=== PATIENT | male | born 1955 | race Caucasian/White ===

== ENCOUNTER 2018-11-13 05:37 | Day surgery (SDC) ==
[2018-10-23 09:36] LABS: HEMATOCRIT 45.7 % (42.0-52.0); HEMOGLOBIN 14.8 g/dL (14.0-18.0); INR 1.06; MCH 23.6 PG (27-31); MCHC 32.4 g/dL (33-37); MCV 72.9 FL (81-99); MPV 10.6 FL (7.4-10.4); PROTIME 14.6 Seconds (11.0-16.0); RBC 6.27 XMIL (4.7-6.1); RDW 17.3 % (11.5-14.5); WBC 5.81 X1000 (4.8-10.8)
[2018-10-23 09:42] LABS: AGAP 11; BUN 18 mg/dL (8-22); CALCIUM 9.1 mg/dL (8.8-10.2); CHLORIDE 106 mmol/L (98-107); COSMO 284; ESTIMATED GFR > 60; GLUCOSE 112 mg/dL (70-104); POTASSIUM 4.2 mmol/L (3.5-5.1); SODIUM 141 mmol/L (136-145); TCO2 24 mmol/L (25-35)
--- NOTE | 2018-10-23 11:17 | EKG Report ---
Test Performed on : 10/23/2018 08:30:15 AM Test Reason : PAT Blood Pressure : / mmHG Vent. Rate : 081 BPM Atrial Rate : 081 BPM P-R Int : 140 ms QRS Dur : 102 ms QT Int : 388 ms P-R-T Axes : 019 016 024 degrees QTc Int : 450 ms Normal sinus rhythm. with sinus arrhythmia. Nonspecific intraventricular conduction delay Borderline ECG No previous ECGs available Confirmed by Ernesto Arevalo MD ([id number]) on 10/23/2018 6:42:24 PM
[2018-11-13] MEDS ORDERED: KEFZOL 1 GM/D5W 2 GM/100 ML IVPB ONE (06:04)
[2018-11-13] MEDS ORDERED: LR 1,000 ML ONE ×2 (06:04→06:26)
[2018-11-13] MEDS ORDERED: FENTANYL ONE (06:15)
[2018-11-13] MEDS ORDERED: DIPRIVAN 1% ONE (06:15)
[2018-11-13] MEDS ORDERED: QUELICIN (DOSE) ONE (06:17)
[2018-11-13] MEDS ORDERED: SODIUM CHLORIDE 0.9% 10 ML ONE (06:17)
[2018-11-13] MEDS ORDERED: XYLOCAINE-MPF 2% ONE (06:17)
[2018-11-13] MEDS ORDERED: NORCURON ONE ×2 (06:17→08:10)
[2018-11-13] MEDS ORDERED: ROBINUL ONE ×2 (06:17→08:48)
[2018-11-13] MEDS ORDERED: SENSORCAINE-MPF 0.5%/EPI 1:200,000 ONE (06:26)
[2018-11-13] MEDS ORDERED: B & O 16A SUPP ONE (06:26)
--- NOTE | 2018-11-13 06:57 | HISTORY AND PHYSICAL ---
HISTORY OF PRESENT ILLNESS: A 63-year-old male with clinical stage T2a, [place] 6 prostate adenocarcinoma. He presented with an abnormal prostate exam and rising PSA. He has occasional weak stream and hesitancy. He underwent a prostate biopsy in May of 2018 with pathology revealing [place] 6 prostate adenocarcinoma, 3 out of 12 cores in the right base and left apex up to 90% cores involved. He also had a thymus mass and elected to proceed with active surveillance after the thymus mass was removed. 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 His PSA increased up to 4.74 and he presented to discuss treatment. He elected to proceed with a robotic prostatectomy with laparoscopic urethral suspension. PAST MEDICAL HISTORY: Thymoma, hypertension, hyperlipidemia, history of kidney stones, neuropathy, diabetes mellitus, prostate cancer. PAST SURGICAL HISTORY: Open pyelolithotomy for kidney stone, herniorrhaphy, knee arthroscopy. HOME MEDICATIONS: Aspirin. ALLERGIES: No known drug allergies. FAMILY HISTORY: Positive for hypertension and diabetes. SOCIAL HISTORY: Denies tobacco, alcohol, or illicit drug use. PHYSICAL EXAMINATION: GENERAL: No acute distress. HEENT: Normocephalic, atraumatic. CARDIOVASCULAR: Regular rate and rhythm. PULMONARY: Bilateral breath sounds. ABDOMEN: Nontender, nondistended. : Normal external male genitalia. ASSESSMENT: A 63-year-old male with abnormal prostate examination and [place] 6 prostate adenocarcinoma who feels strongly about surgical intervention. We discussed the risks of robotic- assisted laparoscopic prostatectomy with laparoscopic urethral suspension including but not limited to bleeding, infection, injury to adjacent structures, inability to remove all of the cancer, long-term risk of urinary incontinence, as well as long-term risk of erectile dysfunction, and the need for additional intervention in the future. He voiced understanding and wants to proceed. PLAN: Robotic-assisted laparoscopic prostatectomy with urethral suspension. cc: Tiburcio Lopez MD
[2018-11-13] MEDS ORDERED: DECADRON ONE (07:29)
[2018-11-13 07:54] LABS: URINE SOURCE CATH
[2018-11-13 08:00] LABS: BILIRUBIN URINE NEGATIVE (NEGATIVE); BLOOD URINE MODERATE (NEGATIVE); COLOR YELLOW; GLUCOSE URINE NEGATIVE (NEGATIVE); KETONE URINE NEGATIVE (NEGATIVE); LEUKOCYTES URINE NEGATIVE (NEGATIVE); NITRITE URINE NEGATIVE (NEGATIVE); PH URINE 5.5; PROTEIN URINE NEGATIVE (NEGATIVE); TURBIDITY URINE CLEAR (CLEAR); UROBILINOGEN URINE NORMAL (NORMAL)
[2018-11-13 08:02] LABS: UR EPITHELIAL CELLS <10 /HPF (<10); URINE BACTERIA NEGATIVE /HPF; URINE RBC <10 /HPF (<10); URINE WBC <10 /HPF (<10)
[2018-11-13] MEDS ORDERED: NEOSTIGMINE ONE (08:48)
[2018-11-13] MEDS ORDERED: ZOFRAN ONE (08:59)
[2018-11-13] MEDS ORDERED: NS 1,000 ML ONE (10:21)
[2018-11-13] MEDS ORDERED: MORPHINE IV PRN (10:37)
[2018-11-13] MEDS ORDERED: PHENERGAN PO PRN (10:45)
[2018-11-13] MEDS ORDERED: BENADRYL IV PRN (10:45)
[2018-11-13] MEDS ORDERED: B & O 15A SUPP PR PRN (10:45)
[2018-11-13] MEDS ORDERED: LABETALOL IV PRN (10:45)
[2018-11-13] MEDS ORDERED: PHENERGAN IV PRN (10:45)
[2018-11-13] MEDS ORDERED: DILAUDID IV PRN (10:45)
[2018-11-13] MEDS ORDERED: OXY IR PO PRN ×2 (10:45)
[2018-11-13] MEDS ORDERED: BENADRYL LIQUID PO PRN (10:45)
[2018-11-13] MEDS ORDERED: DITROPAN PO PRN (10:45)
[2018-11-13] MEDS ORDERED: ZOFRAN IV PRN (10:45)
[2018-11-13] MEDS ORDERED: SODIUM CHLORIDE 0.9% INJ PRN (10:45)
[2018-11-13] MEDS ORDERED: TYLENOL PO PRN (10:45)
[2018-11-13] MEDS ORDERED: PHENERGAN PR PRN (10:45)
[2018-11-13] MEDS: DILAUDID ONE ×2 (10:53→10:56)
[2018-11-13] MEDS: NS 1,000 ML IV SCH ×2 (11:07→12:30)
[2018-11-13] MEDS: TORADOL IV SCH ×3 (12:29→23:50)
[2018-11-13] MEDS ORDERED: NORCO-7.5 PO PRN (12:30)
[2018-11-13] MEDS ORDERED: NORCO-5 PO PRN (12:30)
[2018-11-13] MEDS ORDERED: NORCO-10 PO PRN (12:30)
[2018-11-13] MEDS: BSS OPHTH SOLN LEFT EYE PRN ×3 (13:40→23:49)
[2018-11-13] MEDS ORDERED: OFIRMEV 1000 MG/ISOTONIC SOLN 1,000 MG/100 ML BOTTLE IV PRN (15:00)
[2018-11-13] MEDS: KEFZOL 2 GM/D5W 2 GM/50 ML IVPB IV SCH ×2 (15:57→23:05)
[2018-11-13] MEDS: PEPCID PO SCH (23:05)
[2018-11-13] MEDS: COLACE PO SCH (23:05)
[2018-11-13] MEDS: PERIDEX MT SCH (23:06)
[2018-11-14] MEDS: KEFZOL 2 GM/D5W 2 GM/50 ML IVPB IV SCH (06:42)
[2018-11-14 07:23] VITALS: BP 134/60
[2018-11-14 07:59] LABS: HEMATOCRIT 37.7 % (42.0-52.0); HEMOGLOBIN 11.6 g/dL (14.0-18.0); MCH 23.9 PG (27-31); MCHC 30.8 g/dL (33-37); MCV 77.6 FL (81-99); MPV 11.2 FL (7.4-10.4); RBC 4.86 XMIL (4.7-6.1); RDW 18.3 % (11.5-14.5); WBC 11.02 X1000 (4.8-10.8)
[2018-11-14 08:12] LABS: AGAP 10; BUN 15 mg/dL (8-22); CALCIUM 8.5 mg/dL (8.8-10.2); CHLORIDE 103 mmol/L (98-107); COSMO 280; CREATININE 1.2 mg/dL (0.7-1.2); ESTIMATED GFR > 60; GLUCOSE 135 mg/dL (70-104); POTASSIUM 4.1 mmol/L (3.5-5.1); SODIUM 139 mmol/L (136-145); TCO2 26 mmol/L (25-35)
[2018-11-14] MEDS: COLACE PO SCH (10:21)
[2018-11-14] MEDS: TORADOL IV SCH (10:21)
[2018-11-14] MEDS: PERIDEX MT SCH (10:21)
[2018-11-14] MEDS: PEPCID PO SCH (10:21)
--- NOTE | 2018-11-14 19:33 | PROGRESS NOTE ---
DATE: 11/14/2018 SUBJECTIVE: Mr. Krishnan reports he had a decent night. His pain is adequately controlled. He denies nausea. OBJECTIVE: Vital Signs: Temperature 98.2 degrees, pulse 93, blood pressure 134/60. His urine output was reported in amount of 3150 mL. General: No acute distress. Abdomen: Appropriately tender and nondistended. : Ace catheter in place, draining straw-colored urine. Incision clean, dry, and intact. PERTINENT LABS: Hematocrit is 38. Creatinine is 1.2. ASSESSMENT: 63-year-old male, postop day 1 status post robotic assisted laparoscopic prostatectomy with laparoscopic urethral suspension, who is doing well. He was educated on postoperative care and discharged home with a large bag and leg bag. PLAN: 1. Discharge home with Ace catheter. 2. He will go home with prescriptions for [place] 7.5 p.r.n. (#10), and Keflex 250 b.i.d. (#6). It was started on 11/17/2018. 3. Ditropan 5 mg t.i.d. p.r.n. (#15) For spasms. 4. He will come for Ace catheter removal on 11/18/2018. cc: Tiburcio Lopez MD
--- NOTE | 2018-11-14 22:08 | OPERATIVE NOTE ---
PROCEDURE DATE: 11/13/2018 SURGEON: Tiburcio Lopez MD. PREOPERATIVE DIAGNOSIS: Elevated prostate-specific antigen, prostate cancer. POSTOPERATIVE DIAGNOSIS: Elevated prostate-specific antigen, prostate cancer. PROCEDURE: Robotic-assisted laparoscopic prostatectomy with nerve sparing, laparoscopic urethral suspension. INDICATIONS: A 63-year-old male who presented with a rising PSA. He underwent prostate biopsy which revealed [place] 6 prostate adenocarcinoma. He originally elected to proceed with active surveillance, especially given the diagnosis of a thymus mass. He underwent that surgery in [place] and as part of followup, his PSA hilda. He wants to proceed with definitive intervention with robotic prostatectomy. FINDINGS: Watertight vesicourethral anastomosis at 240 mL. Bilateral nerve sparing was performed. DESCRIPTION OF PROCEDURE: After obtaining informed consent, patient was brought to the operating room. Perioperative antibiotics and general endotracheal anesthesia were administered. He was placed in lithotomy position, prepped and draped in a sterile fashion. An 18-[place] Ace catheter was introduced and placed to gravity drainage. We began by making a small stab incision in his umbilicus, and introducing a Veress needle connected to saline-filled syringe. We confirmed positive drop test, followed by aspiration of fluid in the syringe, without evidence of GI contents or blood. We insufflated his peritoneal cavity to 15 mmHg. Following that, we demarcated the trocar sites in the standard prostatectomy fashion. 10 mL of 0.25% Marcaine with epinephrine were used for local anesthesia. Bovie electrocautery was used to incise skin. A 12 mm camera trocar was introduced followed by insertion of the camera itself. His peritoneal cavity was examined and the rest of the trocars were placed under direct vision. We placed him in steep Trendelenburg position. The robot was docked. We began by mobilizing his sigmoid colon as it was adhered to the pelvic sidewall. Subsequent to that, we incised the peritoneum approximately 3 cm above his rectum, and were able to identify, dissect, and transect the right vas deferens. This was followed by identification and dissection of the right seminal vesicle. The same thing was done with the left vas deferens and left seminal vesicle. We then dissected anterior to vas deferens to the level of the prostate, and subsequently posterior to seminal vesicles by incising Denonvilliers' fascia and developing a perirectal plane. Attention was then drawn to dropping the bladder. We incised lateral to each medial umbilical ligament. His right medial umbilical ligament was patent with respect to blood flow, and I had to use bipolar cautery several times in order to control the bleeding. We eventually were able to gain access to the space of Retzius, and the bladder was dropped. The fat was reflected off the endopelvic fascia. The endopelvic fascia was then incised along the contour of the prostate, with dissection taking place toward its apex. The puboprostatic ligaments were divided sharply. The superficial dorsal vein was controlled with bipolar electrocautery. Deep dorsal venous complex was controlled with a 0 V-Loc suture followed by attempt to perform periosteal elevation. He appeared to have a very thin periosteum and hence, I abandoned the periosteal elevation and just tied the suture in a [id number] fashion. Subsequent to that, we identified the bladder neck by gentle tugging on the Ace. Monopolar cautery was used to incise the bladder neck until Ace catheter came into the view. At that time, we attempted to bring the Ace catheter into the operative field and placed on anterior traction with the fourth arm, but it became apparent that Ace catheter did not move as was indicated to me earlier. Hence, we concluded that we would likely put the stitch through the deep dorsal vein and the Ace. At that time, I turned attention back to the deep dorsal venous complex and cut the 0 V-Loc suture, which allowed us to achieve catheter mobility. At that time, there was quite a bit of bleeding and I ended up having to control it with two 0 V-Loc sutures. Eventually, we achieved good hemostasis and the catheter was brought in with the use of the fourth arm anteriorly. We then dissected circumferentially the bladder neck and by further elevating the prostate anteriorly, I was able to develop the plane between the prostate and the bladder. This was done until the vas deferens and seminal vesicles came into the view. Those were brought into the field and placed in anterior traction. Attention was then turned to reflect the neurovascular bundles on both sides. We used Hem-o-Roopa clips and judicious use of cautery. I attempted to perform intrafascial dissection in order to preserve the neurovascular bundle to its most degree. Once the bundles were reflected bilaterally, we developed the plane posteriorly toward the apex of the prostate. The apex was then transected and urethra was identified. I performed maximal urethral sparing technique, giving us approximately a 2 cm stump of the urethra. It was sharply transected. The prostate was delivered and placed into the EndoCatch bag. We then irrigated the operative field and there was no evidence of significant bleeding except for a tributary to the deep dorsal vein, which was controlled with the remnant 0 V- Loc suture. Attention was then turned to García stitch. In a standard fashion, a 3-0 V-Loc suture was used to reapproximate perivesical and periurethral fascia in a clockwise and counterclockwise fashion. We spared those sutures for future laparoscopic urethral suspension. We then performed a formal vesicourethral anastomosis with another set of 3-0 V-Loc sutures by reapproximating the urethral mucosa and bladder mucosa in a clockwise and counterclockwise fashion, eventually cross-tying the sutures. A fresh 18-[place] Ace catheter was introduced and the anastomosis was tested by instilling 240 mL of sterile fluid. There was no evidence of anastomotic leak. Following that, attention was turned to the laparoscopic urethral suspension which was done by placing the previously used 3-0 V-Loc suture through the weak periosteum he had. I had to do it a couple times on each side in order to achieve decent traction and elevate the urethra. Once that was done, we decreased pneumoperitoneal pressure to 3 mmHg and there was no evidence of significant bleeding, but there was a little bit of oozing from the area of the tributary to the deep dorsal venous complex. Hence, I used a medium-sized Surgicel hemostatic agent and placed it over the area of oozing. Following that, we decreased pneumoperitoneal pressure again, and hemostasis appeared to be excellent. We then undocked the robot, extended the supraumbilical incision, and delivered the prostate. The wounds were copiously irrigated. A 0 PDS was used to close supraumbilical fascia in a running fashion. A 0 Vicryl suture was used in a amvkve-[id number]-jxhaw fashion to close the 12 mm library circulation assistant trocar. The wounds were irrigated again. A 4-0 Monocryl suture was used to reapproximate skin in a subcuticular fashion. Covidien hemostatic agent was then applied. The patient was extubated and taken to PACU for further recovery. B and O suppository was administered by me prior to him awakening. ESTIMATED BLOOD LOSS: 700 mL. COMPLICATIONS: None. SPECIMENS: Prostate. DRAINS: 18-[place] Ace catheter. DISPOSITION: To PACU and subsequently floor for observation, with Ace catheter to gravity drainage. cc: Tiburcio Lopez MD
== END 2018-11-14 11:11 | disposition home or self-care (01) ==
LOC: OPS 05:37 → 4N 05:37 → OPS 11-14 11:11
PROVIDERS: ATTEND Urology